=== PATIENT | female | born 1955 | race African-American/Black ===

== ENCOUNTER 2016-10-21 14:46 | Emergency (ER) | payer MEDICARE, MEDICAID ==
[~2016-10-21] VITALS: Ht 170.2 cm; Wt 79.0 kg
[~2016-10-21 14:46] MED LIST: AMLO5TAB4 PO; HYDR25TA PO; LOSA100T14 PO; METF500T4 PO; METO100T9 PO; PROT40 PO
[2016-10-21 15:03] VITALS: BP 161/87
== END 2016-10-21 16:59 | disposition left against medical advice (07) ==
LOC: ER 16:51
DX: Z53.21 Procedure and treatment not carried out due to patient leaving prior to being seen by health care provider (principal)

== ENCOUNTER 2017-03-13 10:33 | Emergency (ER) | payer MEDICARE, MEDICAID ==
[~2017-03-13] VITALS: Ht 170.2 cm; Wt 82.0 kg
[2017-03-13] MEDS ORDERED: ACETAMINOPHEN 500MG TABLET PO ONE (15:00)
[2017-03-13 15:05] VITALS: BP 160/97
== END 2017-03-13 15:10 | disposition home or self-care (01) ==
LOC: ER 14:09
DX: M25.462 Effusion, left knee (principal); M25.461 Effusion, right knee; M25.562 Pain in left knee; M25.561 Pain in right knee; E11.9 Type 2 diabetes mellitus without complications; M54.30 Sciatica, unspecified side; K21.9 Gastro-esophageal reflux disease without esophagitis; I10 Essential (primary) hypertension; F17.210 Nicotine dependence, cigarettes, uncomplicated
CPT/HCPCS: 73562; 99284

== ENCOUNTER 2018-07-01 17:57 | Emergency (ER) | payer MEDICARE, MEDICAID ==
[~2018-07-01] VITALS: Ht 170.2 cm; Wt 84.0 kg
[~2018-07-01 17:57] MED LIST changes: +CHOL100044 PO; +CLON0.1T PO; +DIAZ10TA PO; +INSLIS SUBCUT; +METF-414 PO; -METF500T4 PO; +POTA10CA42 PO; +S350 PO; +TYLENOL #4 PO; +VALCYCLOVIR PO; +VITAMIN D3 PO
[2018-07-01 19:24] LABS: BASOPHILS % 1.3 % (0.0-2.0); EOSINOPHILS % 1.9 % (0.0-5.0); HEMOGLOBIN. 11.9 g/dL (12.0-16.0); LYMPHOCYTES % 40.7 % (20.0-50.0); MEAN CORPUSCULAR HEMOGLOBIN 30.7 pg (28.0-32.0); MEAN CORPUSCULAR VOLUME 92.8 fL (81.0-99.0); MEAN PLATELET VOLUME 8.5 fl (7.4-10.4); MONOCYTES % 8.3 % (2.0-8.0); NEUTROPHILS % 47.8 % (40.0-76.0); PLATELET 214 x1000/uL (130-400); RED BLOOD CELL COUNT 3.87 mill/uL (4.2-5.4); RED CELL DISTRIBUTION WIDTH 15.3 % (11.6-14.6)
[2018-07-01 19:32] LABS: CHLORIDE 107 mEq/L (98-107)
[2018-07-01 20:14] VITALS: BP 182/87
== END 2018-07-01 20:05 | disposition home or self-care (01) ==
LOC: ER 17:57
DX: M79.18 Myalgia, other site (principal); E11.9 Type 2 diabetes mellitus without complications; K21.9 Gastro-esophageal reflux disease without esophagitis; I10 Essential (primary) hypertension; M54.30 Sciatica, unspecified side; D64.9 Anemia, unspecified; F17.200 Nicotine dependence, unspecified, uncomplicated; Z90.49 Acquired absence of other specified parts of digestive tract; Z79.4 Long term (current) use of insulin
CPT/HCPCS: 36415; 71045; 83880; 84484; 93005; 99284